=== PATIENT | female | born 1985 | race African-American/Black ===

== ENCOUNTER 2023-11-23 14:48 | Emergency (ER) | payer SELFPAY ==
[2023-11-23 15:25] VITALS: RESP 26; BMI 45.4
[2023-11-23 16:47] VITALS: BP 194/101; PULSE 86; TEMP 99.3
[2023-11-23] MEDS ORDERED: ACETAMINOPHEN INJECTION 100 ML ONE (17:55)
[2023-11-23] MEDS: ACETAMINOPHEN 1000 MG/100 ML BAG IVPB ONE (18:19)
[2023-11-23] MEDS: SODIUM CHLORIDE 1,000 ML IV STA (18:19)
== END 2023-11-23 19:50 | disposition left against medical advice (07) ==
LOC: JER 14:48
DX: U07.1 COVID-19 (principal); M54.50 Low back pain, unspecified; M79.661 Pain in right lower leg; M79.662 Pain in left lower leg
CPT/HCPCS: 0241U-QW; 99283-25